=== PATIENT | male | born 1985 | race African-American/Black ===

== ENCOUNTER 2016-12-27 17:56 | Emergency (ER) | payer SELFPAY | END 2016-12-27 18:30 | disposition home or self-care (01) | LOC: MADERS 17:56 | DX: K04.7 Periapical abscess without sinus (principal); F17.210 Nicotine dependence, cigarettes, uncomplicated ==

== ENCOUNTER 2018-10-18 07:57 | Emergency (ER) | payer SELFPAY | END 2018-10-18 08:43 | disposition home or self-care (01) | LOC: MADERS 07:57 | DX: K04.7 Periapical abscess without sinus (principal); F17.210 Nicotine dependence, cigarettes, uncomplicated | CPT/HCPCS: 99283 ==